=== PATIENT | male | born 1970 | race Caucasian/White ===

== ENCOUNTER 2020-09-21 08:29 | Outpatient (CLI) | payer OTHER, SELFPAY ==
--- NOTE | 2020-09-21 08:54 | ECHO_ITS ---
Patient Info Name: Bhaskar De La Rosa Age: 50 years : 1970 Gender: Male Ht: 72 in Wt: 254 lbs BSA: 2.46 m2 HR: 60 bpm BP: 155 / 105 mmHg Heart Rhythm: Sinus Rhythm Exam Date: 09/21/2020 9:05 AM Exam Location: [facility] Patient Status: Outpatient Admit Date: 09/21/2020 Staff Ordering Physician: Chance Holman MD Hospital Secretary: Erica Tsai RDCS Attending Provider: Chance Holman MD Referring Physician: Manda MAE; Exam Type: CA echo doppler color flow Study Info Indications R06.00 - Dyspnea, unspecified Complete two-dimensional, color flow and Doppler transthoracic echocardiogram is performed. Summary 1. Complete two-dimensional, color flow and Doppler transthoracic echocardiogram is performed. 2. Left ventricular chamber dimension is normal. 3. Left ventricular systolic function is normal, estimated at 60-65%. 4. There is mildly increased left ventricular wall thickness. 5. The left ventricular diastolic function is abnormal. 6. E/e' 10 is mildly elevated. 7. Left atrial chamber dimension is mildly enlarged. 8. There is trace tricuspid valve regurgitation. 9. No pulmonary hypertension, estimated pulmonary arterial systolic pressure is 23 mmHg. Left Ventricle E/e' 10 is mildly elevated. Left ventricular chamber dimension is normal. Left ventricular systolic function is normal, estimated at 60-65%. There is mildly increased left ventricular wall thickness. The left ventricular diastolic function is abnormal. Right Ventricle Right ventricular chamber dimension is normal. Right ventricular systolic function is normal. Left Atria Left atrial chamber dimension is mildly enlarged. Right Atria Right atrial chamber dimension is normal. Aortic Valve The aortic valve is trileaflet. There is no aortic valve stenosis. There is no aortic valve regurgitation. Pulmonic Valve There is no pulmonic regurgitation. Mitral Valve There is no mitral valve stenosis. There is no mitral valve regurgitation. Tricuspid Valve There is trace tricuspid valve regurgitation. No pulmonary hypertension, estimated pulmonary arterial systolic pressure is 23 mmHg. Pericardium/Pleural There is no pericardial effusion. Inferior Vena Cava Normal inferior vena cava with >50% collapse upon inspiration consistent with normal right atrial pressure, 5 mmHg. Aorta The aortic root size at the sinus of Valsalva is normal. Left Ventricular Outflow Tract Name Value Normal LVOT 2D LVOT Diameter 2.3 cm LVOT Doppler LVOT Peak Gradient 3 mmHg LVOT Mean Gradient 2 mmHg LVOT VTI 22 cm LVOT VTI/AV VTI Ratio 0.9 LVOT Stroke Volume 93 ml LVOT CO 15.3 l/min LVOT CI 6.2 l/min/m2 Pulmonic Valve Name Value Normal
--- NOTE | 2020-09-21 08:54 | EST_ITS ---
Patient Info Name: Bhaskar De La Rosa Age: 50 years : 1970 Gender: Male Ht: 72 in Wt: 250 lbs BSA: 2.44 m2 Exam Date: 09/21/2020 10:38 AM Exam Location: [facility] Patient Status: Outpatient Admit Date: 09/21/2020 Staff Ordering Physician: Laila Holman MD Attending Provider: HAMZAH MICHEL Referring Physician: LAILA HOLMAN M.D.; Exercise Technologist: Rafia Costa CT Exercise Physician: Hamzah Michel DO Exam Type: CA stress test treadmill Study Info An exercise stress test was performed. Summary 1. 1. Negative Thierno exercise stress test for ischemic ST changes by ECG criteria. 2. 2. Good functional capacity, achieving 12 METs of workload. 3. 3. Baseline hypertension. 4. 4. Appropriate HR response to exercise. 5. 5. Appropriate HR recovery at 1 minute post exercise. 6. 6. No imaging with stress testing. 7. 7. Patient informed of the above results. Protocol: [facility] ECG Details Stage: REST Duration (min): 2 min : 20 sec Speed (mph): 0.0 Grade (%): 0 HR (bpm): 56 SBP (mmHg): 145 DBP (mmHg): 98 METS: --- Stage: REST Duration (min): 12 min : 17 sec Speed (mph): 0.0 Grade (%): 0 HR (bpm): 66 SBP (mmHg): 145 DBP (mmHg): 98 METS: --- Stage: STAGE 1 Duration (min): 1 min : 0 sec Speed (mph): 1.7 Grade (%): 10 HR (bpm): 89 SBP (mmHg): 145 DBP (mmHg): 98 METS: --- Stage: STAGE 1 Duration (min): 2 min : 0 sec Speed (mph): 1.7 Grade (%): 10 HR (bpm): 105 SBP (mmHg): 145 DBP (mmHg): 98 METS: --- Stage: STAGE 1 Duration (min): 3 min : 0 sec Speed (mph): 1.7 Grade (%): 10 HR (bpm): 102 SBP (mmHg): 170 DBP (mmHg): 84 METS: --- Stage: STAGE 2 Duration (min): 1 min : 0 sec Speed (mph): 2.5 Grade (%): 12 HR (bpm): 114 SBP (mmHg): 170 DBP (mmHg): 84 METS: --- Stage: STAGE 2 Duration (min): 2 min : 0 sec Speed (mph): 2.5 Grade (%): 12 HR (bpm): 121 SBP (mmHg): 199 DBP (mmHg): 85 METS: --- Stage: STAGE 2 Duration (min): 3 min : 0 sec Speed (mph): 2.5 Grade (%): 12 HR (bpm): 123 SBP (mmHg): 199 DBP (mmHg): 85 METS: --- Stage: STAGE 3 Duration (min): 1 min : 0 sec Speed (mph): 3.4 Grade (%): 14 HR (bpm): 138 SBP (mmHg): 192 DBP (mmHg): 88 METS: --- Stage: STAGE 3 Duration (min): 2 min : 0 sec Speed (mph): 3.4 Grade (%): 14 HR (bpm): 144 SBP (mmHg): 192 DBP (mmHg): 88 METS: --- Stage: STAGE 3 Duration (min): 3 min : 0 sec Speed (mph): 3.4 Grade (%): 14 HR (bpm): 150 SBP (mmHg): 199 DBP (mmHg): 84 METS: --- Stage: STAGE 4 Duration (min): 1 min : 0 sec Speed (mph): 4.2 Grade (%): 16 HR (bpm): 160 SBP (mmHg): 199 DBP (mmHg): 84 METS: --- Stage: STAGE 4 Duration (min): 1 min : 0 sec Sp
== END 2020-09-21 08:30 | disposition home or self-care (01) ==
PROVIDERS: PCP Family Medicine; Visit Provider Family Medicine
DX: R06.00 Dyspnea, unspecified (principal); I51.7 Cardiomegaly; R93.1 Abnormal findings on diagnostic imaging of heart and coronary circulation
CPT/HCPCS: 93017; 93306

== ENCOUNTER → 2020-10-30 03:00 | Outpatient (CLI) | payer OTHER, SELFPAY ==
[2020-10-30 19:43] LABS: SARS-CoV-2 RNA PCR Negative
== END ==
PROVIDERS: PCP Family Medicine; Visit Provider Internal Medicine Gastroenterology
DX: Z01.812 Encounter for preprocedural laboratory examination (principal); Z20.822 Contact with and (suspected) exposure to COVID-19
CPT/HCPCS: C9803; U0003; U0005

== ENCOUNTER 2020-11-03 03:00 | Day surgery (SDC) | payer OTHER, SELFPAY ==
[2020-10-22 15:25] VITALS: BMI 33.5
[2020-11-03 06:22] VITALS: BP 162/98; PULSE 66; RESP 16; TEMP 36.2; O2SAT 96; BMI 34.7
[2020-11-03] MEDS: LACTATED RINGERS 1,000 ML 150 ML IV CONT (06:33)
--- NOTE | 2020-11-03 07:10 | WPDANESEPPF ---
Anes - Initial Pre Proc Eval Procedure: Operation Date: 11/03/20 07:30 Proposed Procedures p Screening Colonoscopy - Yuri Ahn MD Date/Time: 11/03/20 07:10 Surgeon: Yuri Ahn MD Pre Op Diagnosis: neoplasm screening Patient Data Age: 50 Gender: M Height: 6 ft Weight: 116.1 kg Last Vital Signs Temp 97.2 F L 11/03/20 06:22 Pulse 66 11/03/20 06:22 Resp 16 11/03/20 06:22 BP 162/98 H 11/03/20 06:22 Pulse Ox 96 11/03/20 06:22 Allergies Allergy/AdvReac Type Severity Reaction Status Date / Time No Known Allergies Allergy Unverified 11/03/20 06:21 Home Medications Medication Instructions Recorded Confirmed Type sod picosulf 10 mg-magnes 3.5 160 ml PO BID #160 ml 09/22/20 11/03/20 Rx gram-citric 12 gram/160 mL oral solution Patient hx anesthesia problems: none Family hx anesthesia problems: none PMFSH Past Medical History Medical History (Updated 08/24/20 @ 14:18 by Chance Holman MD) Abnormal fasting glucose Adult BMI 35.0-35.9 kg/sq m Colon cancer screening Dyspnea on exertion Encounter for prostate cancer screening Encounter for wellness examination in adult Mixed hyperlipidemia Surgical History Surgical History (Updated 07/24/19 @ 08:50 by Silke Perdomo MA) H/O umbilical hernia repair (~2006) History of appendectomy (~2013) Family History Family History (Updated 07/24/19 @ 08:51 by Silke Perdomo MA) Mother Breast cancer Grandparent Acute myocardial infarction Grandparent COPD (chronic obstructive pulmonary disease) Social History Social History Smoking status: Never smoker Alcohol intake: current Drinks per week: 1 Alcohol use details: rarely Substance use: never Substance use type: does not use Living arrangements: with family Gender identity (if verbalized by the patient): Male Spiritual care concerns: No Anes - Eval Final PreProcedure Day of Procedure 11/03/20 07:10 Patient weight: obese Heart: regular rate and rhythm Lungs: clear to auscultation Airway: Mallampati scale class III Neurological: alert and oriented Last oral intake: >/= 8 hours ASA classification: III Emergent: no Anesthetic plan: proceed Anesthesia type and monitoring: general GIVS and standard monitoring Informed Consent: The patient's anesthetic plan and its attendant risks and benefits were discussed with the patient/family/POA. Questions were solicited and answers provided to the satisfaction of the patient/family/POA.
--- NOTE | 2020-11-03 07:19 | PM.HPGS ---
History of Present Illness History of Present Illness Consent: Risks, benefits, and alternatives have been discussed and questions answered. Patient agrees to proceed with procedure. Chief complaint: neoplasm screening Narrative: Bhaskar De La Rosa is a 50 year old male here for first screening colonoscopy Review of Systems Constitutional: Constitutional: Denies headache(s) and Denies weakness Eyes: Eyes: Denies blurry vision ENT: Reports Normal hearing present, Denies headache(s) and Denies neck pain Cardiovascular: Cardiovascular: Denies chest pain and Denies dyspnea Respiratory: Respiratory: Denies dyspnea Gastrointestinal: Gastrointestinal: Reports no additional gastrointestinal complaints Genitourinary: Genitourinary: Denies dysuria Musculoskeletal: Musculoskeletal: Denies neck pain Integumentary/Breasts: Skin/Breast: Denies dry skin Neurologic: Reports Normal hearing present, Denies headache(s) and Denies weakness Psychiatric: Psychiatric: Denies anxiety Endocrine: Endocrine: Denies change in body appearance Hematologic/Lymphatic: Hematologic/Lymphatic: Denies easy bleeding Allergic/Immunologic: Allergic/Immunologic: Denies urticaria PMF Past Medical History Medical History (Updated 08/24/20 @ 14:18 by Chance Holman MD) Abnormal fasting glucose Adult BMI 35.0-35.9 kg/sq m Colon cancer screening Dyspnea on exertion Encounter for prostate cancer screening Encounter for wellness examination in adult Mixed hyperlipidemia Surgical History Surgical History (Updated 07/24/19 @ 08:50 by Silke Perdomo MA) H/O umbilical hernia repair (~2006) History of appendectomy (~2013) Family History Family History (Updated 07/24/19 @ 08:51 by Silke Perdomo MA) Mother Breast cancer Grandparent Acute myocardial infarction Grandparent COPD (chronic obstructive pulmonary disease) Social History Social History Smoking status: Never smoker Alcohol intake: current Drinks per week: 1 Alcohol use details: rarely Substance use: never Substance use type: does not use Living arrangements: with family Gender identity (if verbalized by the patient): Male Spiritual care concerns: No Meds Home Medications and Allergies Home Medications Medication Instructions Recorded Confirmed Type sod picosulf 10 mg-magnes 3.5 160 ml PO BID #160 ml 09/22/20 11/03/20 Rx gram-citric 12 gram/160 mL oral solution Allergies Allergy/AdvReac Type Severity Reaction Status Date / Time No Known Allergies Allergy Unverified 11/03/20 06:21 Vital Signs Vital Signs - 24 hr 11/03/20 06:22 Temperature 97.2 F L Pulse Rate 66 Respiratory Rate 16 Blood Pressure 162/98 H Pulse Oximetry 96 Exam Const: General: comfortable and no acute distress HENMT: General nose exam: Normal nares present Eyes: General: appearance normal, both eyes and all related structures Neck: Neck: no JVD Resp: Auscultation: clear to auscultation bilaterally Cardio: Rate: regular rate Rhythm: regular rhythm GI: Inspection: non-distended GI Palp: Yes Soft to palpation Skin: General skin exam: normal color Neuro: General: gait normal Speech: normal speech Extrem: General: normal to inspection Psych: Mental Status: mental status grossly normal Assessment and Plan Assessment and plan (1) Colon cancer screening: Code(s): Z12.11 - Encounter for screening for malignant neoplasm of colon Status: Acute Assessment and Plan: colonoscopy
[2020-11-03 07:54] VITALS: BP 123/91; PULSE 71; RESP 22; O2SAT 97
[2020-11-03 08:04] VITALS: BP 141/84; PULSE 60; RESP 20; O2SAT 97
[2020-11-03 08:14] VITALS: BP 144/78; PULSE 68; RESP 20; O2SAT 98
== END 2020-11-03 08:25 | disposition home or self-care (01) ==
PROVIDERS: PCP Family Medicine; Visit Provider Internal Medicine Gastroenterology
PROC: 0DJD8ZZ Inspection of Lower Intestinal Tract, Via Natural or Artificial Opening Endoscopic (ICD-10-PCS; CPT 45378; principal; 2020-11-03 07:30)
DX: Z12.11 Encounter for screening for malignant neoplasm of colon (principal); D12.2 Benign neoplasm of ascending colon; D12.5 Benign neoplasm of sigmoid colon; K63.5 Polyp of colon; K57.30 Diverticulosis of large intestine without perforation or abscess without bleeding; K64.8 Other hemorrhoids; E78.2 Mixed hyperlipidemia; E66.9 Obesity, unspecified; Z68.34 Body mass index [BMI] 34.0-34.9, adult
CPT/HCPCS: 45385; 88305; C9803; J2704; J7120; U0003; U0005

== ENCOUNTER 2023-06-27 08:08 | Emergency (ER) | payer OTHER, SELFPAY ==
--- NOTE | ~2023-06-27 | XR_ITS ---
EXAMINATION: XR chest 2V DATE: 06/27/2023 08:32 INDICATION: Cough TECHNIQUE: PA and lateral views of the chest are obtained. COMPARISON: None available FINDINGS: There are minimal airspace opacities of the lung bases. No pleural effusion or pneumothorax . The cardiomediastinal silhouette is normal. There is mild thoracic spondylosis. IMPRESSION: 1. Minimal airspace opacities of the lung bases, consistent with atelectasis versus pneumonia. Reviewed, dictated and finalized at location B. ER FISH IMPRESSION: 1. Minimal airspace opacities of the lung bases, consistent with atelectasis ve rsus pneumonia.
--- NOTE | 2023-06-27 08:08 | ED.URI ---
HPI - URI/Sore Throat General Chief Complaint: Upper Respiratory Infection Stated Complaint: COUGH/CONGESTION Time Seen by Provider: 06/27/23 08:08 Source: patient Mode of arrival: ambulatory Limitations: no limitations History of Present Illness HPI Narrative: Bhaskar is a 52-year-old male patient presenting to the clinic today with complaints of cough and congestion x2 weeks. He reports no known fever or chills. States he is having a productive cough times with yellow phlegm. Does report some mild shortness of breath. No known exposure to anyone with COVID, flu, or strep. MD elicited complaint: cough and nasal congestion Related Data Allergies Allergy/AdvReac Type Severity Reaction Status Date / Time No Known Allergies Allergy Verified 06/27/23 08:21 Review of Systems Review of Systems: Pertinent positives per HPI. Patient denies any fever, chills, rash, headache, visual changes, dizziness, shortness of breath, chest pain, palpitations, nausea, vomiting, diarrhea, constipation, abdominal pain, or any urinary issues. [facility] Past Medical History Medical History Abnormal fasting glucose glucose 96 with hemoglobin A1c 5.6 on 08/24/2021. Glucose 100 with hemoglobin A1c 5.7 on 09/18/2022. Adult BMI 35.0-35.9 kg/sq m BMI 34.0-34.9,adult BMI 36.0-36.9,adult Chronic low back pain without sciatica (~2020) COVID-19 (~05/2020) Dyspnea on exertion Elevated blood pressure reading without diagnosis of hypertension (09/28/22) blood pressure 128/86 09/28/2022. Encounter for prostate cancer screening PSA 0.4 on 08/24/2021. PSA 0.4 on 09/18/2022. Encounter for wellness examination in adult Eustachian tube dysfunction Lateral epicondylitis of right elbow (~2021) work injury over 1 year ago lifting heavy object. Mixed hyperlipidemia total cholesterol 197, triglycerides 99, HDL 51, LDL 128 on 08/24/2021. Cholesterol 202, triglycerides 93, HDL 56, LDL 129 09/18/2022. Obesity (BMI 30-39.9) Polyp of colon (11/03/20) the patient had 3 small polyps, internal hemorrhoids, and diverticulosis on 1st colonoscopy 11/03/2020. Recheck 5 years Surgical History Surgical History H/O umbilical hernia repair (~2006) History of appendectomy (~2013) Family History Family History Mother Breast cancer Grandparent Acute myocardial infarction Grandparent COPD (chronic obstructive pulmonary disease) Social History Social History Smoking status: Never smoker Alcohol intake: current Drinks per week: 1 Alcohol use details: rarely Substance use: never Substance use type: does not use Lack of Transportation: No Lack of Food: Never True Current Housing: I Have Housing Concerned About Future Housing: No Difficulty Paying Gas/Electric Bills: No Difficulty Paying for Meds: No Currently Unemployed: No Education: Bachelor's Degree Difficulty w/ Childcare or Family Care: No Living arrangements: with family Occupation/Education: occupation Gender identity (if verbalized by the patient): Male Spiritual care concerns: No Comments At the time of my signature, I reviewed and agree with the nursing past medical, surgical, social, and family history. There is no relevant family history pertinent to the patient complaint. Exam Narrative: General: Well-developed, well nourished, in no apparent distress Head: Normocephalic, atraumatic Eyes: Pupils equally round and reactive to light bilaterally, EOM intact, sclera and conjunctive clear, no discharge, lids normal Ears: TMs intact and clear, ear canals clear, no drainage, grossly hearing normal. Nose: Nares patent, clear nasal discharge, no inflammation, no sinus tenderness. Mouth: Oral pharynx without lesio
[2023-06-27 08:18] VITALS: BP 169/102; PULSE 82; RESP 16; TEMP 36.9; O2SAT 97
[2023-06-27 08:52] VITALS: BP 148/98
== END 2023-06-27 08:52 | disposition home or self-care (01) ==
PROVIDERS: Emergency Provider Nurse Practitioner Family; PCP Family Medicine
DX: J18.9 Pneumonia, unspecified organism (principal); E78.2 Mixed hyperlipidemia; E66.9 Obesity, unspecified; Z68.35 Body mass index [BMI] 35.0-35.9, adult; Z86.16 Personal history of COVID-19
CPT/HCPCS: 71046; 99213; G0463